=== PATIENT | male | born 1965 | race Caucasian/White ===

== ENCOUNTER 2016-08-08 17:12 | Emergency (ER) | payer SELFPAY ==
[~2016-08-08] VITALS: Ht 175.3 cm; Wt 122.5 kg
[2016-08-08 18:06] VITALS: BP 137/78
--- NOTE | 2016-08-08 19:35 | NUR ---
PT TAKEN TO BED 6
--- NOTE | 2016-08-08 19:40 | NUR ---
51Y M BIB FAMILY C/O L SHOULDER PAIN RADIATED TO THE LEFT GLUT X 1 WEEK. PT STATES HE IS A [employer] AND TE[employer] AND IS CONSTANTLY LIFTING HEAVY OBJECTS AND IS ON HIS FEET FOR 10 HOURS DAILY. PT STATE HE HAS TAKE MOTRIN 800MG FOR RELIEF BUT IT IS NOT EFFECTIVE. PT AAOX 4. PT DENIES ANY TRAUMA, N/V/D/, SOB, CP AT THE MOMENT.
--- NOTE | 2016-08-08 20:30 | NUR ---
Dr. Frost evaluating patient at bedside.
[2016-08-08] MEDS ORDERED: KETOROLAC 60 MG/2 ML VIAL IM ONE (20:55)
[2016-08-08] MEDS ORDERED: methylPREDNISolone SS 125 MG in WATER STERILE 2 ML IM ONE (20:55)
--- NOTE | 2016-08-08 21:22 | NUR ---
Patient discharged with v/s stable. Written and verbal after care instructions given and explained. Patient alert, oriented and verbalized understanding of instructions. Ambulatory with steady gait. All questions addressed prior to discharge. ID band removed. Patient advised to follow up with PMD. Rx of ATIVAN 1, PERCOCET 5/325, AND PREDNISONE 5MG given. Patient educated on indication of medication including possible reaction and side effects. Opportunity to ask questions provided and answered.
[2016-08-08 21:27] VITALS: BP 122/84
== END 2016-08-08 21:22 | disposition home or self-care (01) ==
LOC: MED 17:12
DX: M54.30 Sciatica, unspecified side (principal); R03.0 Elevated blood-pressure reading, without diagnosis of hypertension; E11.9 Type 2 diabetes mellitus without complications; Z88.5 Allergy status to narcotic agent
CPT/HCPCS: 81002; 96372; 99284; J1885; J2930

== ENCOUNTER 2016-10-28 10:22 | Emergency (ER) | payer SELFPAY ==
[~2016-10-28] VITALS: Ht 171.4 cm; Wt 123.0 kg
[2016-10-28 10:28] VITALS: BP 120/104
--- NOTE | 2016-10-28 10:34 | NUR ---
51M BIB FAMILY C/O LEFT LOWER BACK PAIN X 2 YEARS FROM INJURY AT WORK, WORSENING X 3 DAYS. HX: DM RX: METFORMIN . DENIES N/V/D; SKIN IS PINK/WARM/DRY; AAOX4 WITH EVEN AND STEADY GAIT; LUNGS CLEAR BL; HR EVEN AND REGULAR; PT DENIES ANY FEVER, CP, SOB, OR COUGH AT THIS TIME; PATIENT STATES PAIN OF 10/10 AT THIS TIME; VSS; PATIENT POSITIONED FOR COMFORT; HOB ELEVATED; BEDRAILS UP X2; BED DOWN. ER MD MADE AWARE OF PT STATUS.
--- NOTE | 2016-10-28 11:08 | NUR ---
ER MD DR. WOLF EVALUATING PT AT BEDSIDE.
[2016-10-28] MEDS ORDERED: DEXAMETHASONE 10 MG/ML VIAL IM ONE (11:15)
[2016-10-28] MEDS ORDERED: HYDROmorphone PFS 2 MG/ML SYR IM ONE ×2 (11:15→12:05)
--- NOTE | 2016-10-28 11:26 | NUR ---
MEDICATION ADMINISTERED ORDERED.
[2016-10-28 12:47] VITALS: BP 105/70
--- NOTE | 2016-10-28 12:47 | NUR ---
Patient discharged with v/s stable. Written and verbal after care instructions given and explained. Patient alert, oriented and verbalized understanding of instructions. Ambulatory with steady gait. All questions addressed prior to discharge. ID band removed. Patient advised to follow up with PMD. Rx of PERCOCET, VALIUM, MEDROL given. Patient educated on indication of medication including possible reaction and side effects. Opportunity to ask questions provided and answered.
== END 2016-10-28 12:47 | disposition home or self-care (01) ==
LOC: MED 10:22
DX: M54.42 Lumbago with sciatica, left side (principal); E11.9 Type 2 diabetes mellitus without complications; Z88.6 Allergy status to analgesic agent; Z88.5 Allergy status to narcotic agent
CPT/HCPCS: 72131; 82948; 96372; 99284; J1100; J1170